=== PATIENT | female | born 1955 | race Caucasian/White ===

== ENCOUNTER → 2020-03-21 | Outpatient (CLI) | payer OTHER ==
--- NOTE | 2020-03-21 12:17 | DIREP ---
PROCEDURE:US PELVIS COMPLETE COMPARISON:None. INDICATIONS:N95.0 POSTMENOPAUSAL BLEEDING TECHNIQUE:Pelvic ultrasound using transabdominal technique. Endovaginal images were also obtained for better assessment of the uterus and adnexa. FINDINGS: LMP: 2010 UTERUS:Size is 7.4 x 2.9 x 4.2 cm. The myometrium is homogeneous. A 1.3 x 0.9 x 1.1 cm partially calcified leiomyoma is identified in the posterior myometrium. ENDOMETRIUM:Thickened measuring 1.6 cm. A 0.6 x 0.5 x 0.6 cm heterogeneous area is identified in the fundal portion of the endometrial cavity. RIGHT OVARY:Normal appearance. 1.6 x 1.0 x 1.3 cm. LEFT OVARY:Normal appearance. 1.4 x 0.9 x 1.5 cm. CUL-DE-SAC:Normal. OTHER:Negative. CONCLUSION:Thickened, heterogeneous endometrium, with a 6 mm focal area of decreased echogenicity within the endometrium. Direct visualization and possible biopsy should be considered for further evaluation. Dictated by: [facility] on 03/21/2020 at 11:51 AM ac
== END | disposition home or self-care (01) ==
LOC: RAD 10:05
PROVIDERS: ATTEND Obstetrics & Gynecology
DX: N95.0 Postmenopausal bleeding (principal)
CPT/HCPCS: 76830; 76856

== ENCOUNTER 2020-06-08 06:27 | Day surgery (SDC) | payer OTHER ==
[2020-06-08] VITALS (10 sets, daily range): BP systolic 118–149; BP diastolic 49–92
[~2020-06-08] VITALS: Ht 160 cm; Wt 81.2 kg
[~2020-06-08 06:27] MED LIST: DULO60CA7 PO; GEMF600T20 PO; HYDR25TA PO; LEVO100T5 PO; VITA50004 PO
[2020-06-08 06:54] LABS: BASOPHIL # 0.1 10^3/uL (0.0-0.1); BASOPHIL % 1.2 % (0.0-0.2); EOSINOPHIL # 1.2 10^3/uL (0.0-0.2); EOSINOPHIL % 12.8 % (0.0-5.0); LYMPHOCYTES # 3.12 10^3/uL1 (1.0-4.8); LYMPHOCYTES % 34.1 % (24.0-44.0); MEAN CORP HGB 29.1 pg (26-34); MONOCYTES # 0.8 10^3/uL (0.3-0.8); MONOCYTES % 8.2 % (5.0-12.0); NEUTROPHILS % 43.4 % (41.0-85.0); PLATELET COUNT 449 10^3/uL (150-400); RED CELL DISTRIBUTION WIDTH 12.5 % (11.5-14.5)
[2020-06-08] MEDS: LACTATED RINGERS 1,000 ML IV SCH (07:04)
[2020-06-08] MEDS ORDERED: LIDOCAINE 2% VIAL ONE (07:14)
[2020-06-08] MEDS ORDERED: ZOFRAN ONE (07:15)
[2020-06-08] MEDS ORDERED: DIPRIVAN IV ONE (07:16)
[2020-06-08] MEDS ORDERED: SUBLIMAZE ONE (07:16)
[2020-06-08] MEDS ORDERED: NS 100ML 200 ML IV ONE (07:17)
[2020-06-08] MEDS ORDERED: NS 1000ML 1,000 ML ONE (07:17)
[2020-06-08] MEDS ORDERED: NS 3000ML IRR IR ONE (07:18)
[2020-06-08] MEDS ORDERED: SODIUM CHLORIDE IRR BOTTLE IR ONE (07:18)
[2020-06-08] MEDS ORDERED: VERSED ONE (07:20)
[2020-06-08] MEDS ORDERED: VENTOLIN HFA IH ONE (08:05)
--- NOTE | 2020-06-08 09:40 | PRM.OPH ---
OPERATIVE REPORT OPERATIVE REPORT DATE OF SURGERY: 06/08/2020 PREOPERATIVE DIAGNOSIS: Postmenopausal bleeding, thickened endometrium, thickened endometrium POSTOPERATIVE DIAGNOSIS: Same PROCEDURE: Operative hysteroscopy and dilation and curettage ,polypectomy SURGEON: Nathaly Walter DO BLIND CLEANER: Pamela ANESTHESIA: General BLOOD LOSS: 5 mL. SPECIMENS: Endometrial polyp and endometrial curettings FINDINGS: Endometrial polyp approximately 1-1/2 cm URINE: 200 COMPLICATIONS: None DISPOSITION: Stable to PACU PROCEDURE IN DETAIL: The patient was brought to the operating room where anesthesia was found to be adequate. She was prepped and draped in the normal sterile fashion and placed in the supine lithotomy position. Time-out was performed. I proceeded to place the weighted speculum in the vaginal vault. The anterior lip of the cervix was grasped with a single-tooth tenaculum. The cervix was gently dilated to accommodate the hysteroscope. I had a difficult time visualizing the os therefore the weighted speculum was removed and the bivalve speculum was placed. The hysteroscope was placed into the os and into the endometrial cavity. The endometrial cavity showed an endometrial polyp on the right sidewall. Several pictures were taken. The hysteroscope was removed and I proceeded with a dilation and curettage. Several attempts were made to try to remove the polyp, which were unsuccessful. I chose to reinsert the hysteroscope to check position and then try again with the blind curettage. This again was unsuccessful, therefore the endometrial polyps were used to grasp the mass. Small pieces of the polyp were being removed but I had difficult removing it in its entirety. I then placed the hysteroscope and used the g raspers to remove the polyp from its base. Once this was completed I was able to place the polyp forceps in the canal and remove the polyp in its entirety. Again, I placed the hysteroscope into the os to get a last review of the endometrial cavity. The polyp was removed in its entirety and the lining was hemostatic. The hysteroscope was removed from the endometrial cavity. The single-tooth tenaculum was removed from the anterior lip of the cervix and hemostasis was noted. The speculum was removed from the vaginal vault. The procedure was complete. The patient tolerated the procedure well. She was taken to the recovery room in stable condition. NATHALY WALTER DO Jun 08, 2020 09:40
== END 2020-06-08 10:45 | disposition home or self-care (01) ==
LOC: SDC 06:27
PROVIDERS: ATTEND Obstetrics & Gynecology
DX: N95.0 Postmenopausal bleeding (principal); N84.0 Polyp of corpus uteri; E78.5 Hyperlipidemia, unspecified; E11.9 Type 2 diabetes mellitus without complications; K21.9 Gastro-esophageal reflux disease without esophagitis; L40.50 Arthropathic psoriasis, unspecified; F03.90 Unspecified dementia, unspecified severity, without behavioral disturbance, psychotic disturbance, mood disturbance, and anxiety; Z88.2 Allergy status to sulfonamides; Z90.49 Acquired absence of other specified parts of digestive tract; Z98.890 Other specified postprocedural states
CPT/HCPCS: 36415; 58558; 85025; 88305; A4217 ×2; J2001; J2250; J2405; J3010; J3490; J7030; J7050; J7611; J7120